=== PATIENT | male | born 1970 | race Hispanic/Latino ===

== ENCOUNTER 2021-12-29 13:20 | Inpatient (IN) | payer OTHER, SELFPAY ==
[2021-12-29] MEDS ORDERED: Rocuronium Bromide 10 MG/ML (10ML VIAL) ONE (13:36)
[2021-12-29] MEDS ORDERED: Magnesium 5 GM/10 ML Abboject SYRINGE ONE (13:36)
[2021-12-29 13:52] LABS: Actual Bicarbonate (HCO3a) 16.4 mEq/L (22-28); Analyzer IN Cardio ER; Base Excess (BEa) -9.7 mEq/L (-2.0 to +3.0); CO2 Tension 36.7 mmHg (35.0-45.0); Calcium, Ionized (arterial) 1.18 mmol/L (1.12-1.30); Hemoglobin (Hb) 16.5 g/dL (14.0-18.0); O2 Tension (PaO2), arterial 179.1 mmHg (80.0-100.0); Potassium - ABG Lab 3.38 mmol/L (3.70-5.30); pH, Arterial 7.27 (7.35-7.45)
[2021-12-29 13:52] LABS: #Basophils 0.1 thou/uL (0.0-0.2); #Eosinphils 0.1 thou/uL (0.0-0.7); #Lymphocytes 5.7 thou/uL (1.20-3.40); #Monocytes 0.9 thou/uL (0.11-0.59); #Neutrophils 7.6 thou/uL (1.40-6.50); %Basophils 0.6 % (0.0-1.0); %Lymphocytes 39.4 % (21.0-51.0); Hemoglobin 17.1 g/dL (14.0-18.0); Mean Corpuscular HGB CONC 33.2 g/dL (32.0-36.0); Mean Corpuscular Hemoglobin 30.1 pg (27.0-31.0); Mean Corpuscular Volume 90.8 fL (78.0-98.0); Mean Platelet Volume 7.5 fL (7.4-10.4); Platelet Count 312 thou/uL (130-400); RBC Distribution Width 11.6 % (11.5-14.5); Red Blood Cell (RBC) Count 5.66 mill/uL (4.70-6.10); White Blood Cell (WBC) Count 14.4 thou/uL (4.8-10.8)
[2021-12-29] MEDS ORDERED: Propofol 1,000 MG/100 ML VIAL IV ONE ×2 (13:52→20:36)
[2021-12-29 13:59] LABS: ALV-art Gradient 488.025 mmHg (0-20); Puncture Site LBA
[2021-12-29] MEDS ORDERED: Fentanyl CADD 100 ML IV SCH ×2 (14:30→20:30)
[2021-12-29 14:54] LABS: ALT (SGPT) 133 U/L (8-55); AST (SGOT) 126 U/L (5-34); Albumin 4.4 g/dL (3.5-5.0); Alkaline Phosphatase 58 U/L (40-110); Anion Gap 22 mmol/L (10-20); BUN (Urea Nitrogen) 13 mg/dL (8.4-25.7); Bilirubin, Total 1.5 mg/dL (0.2-1.2); Calc. Creatinine Clearance 0 mL/min (70-130); Calcium 9.3 mg/dL (7.8-10.44); Carbon Dioxide 15 mmol/L (22-29); Chloride 107 mmol/L (98-107); Estimated GFR 77; Globulin 3.3 g/dL (2.4-3.5); Glucose 197 mg/dL (70-105); Potassium 4.5 mmol/L (3.5-5.1); Protein, Total 7.7 g/dL (6.0-8.3); Sodium 139 mmol/L (136-145)
[2021-12-29 15:06] LABS: CKMB 1.2 ng/mL (0-6.6)
[2021-12-29] MEDS ORDERED: Nitroglycerin 0.4 MG TAB (25 Tab Bottle) SL PRN ×2 (16:13→17:10)
[2021-12-29] MEDS ORDERED: Senokot S 8.6-50 MG TAB PO PRN (16:17)
[2021-12-29] MEDS ORDERED: Guaifenesin DM 100-10/5 ML UDCUP PO PRN (16:17)
[2021-12-29] MEDS ORDERED: Acetaminophen 650 MG Suppository PR PRN (16:17)
[2021-12-29] MEDS ORDERED: Aspirin 300 MG Suppository PR SCH (16:30)
[2021-12-29] MEDS ORDERED: HumaLOG 300 UNITS/3 ML VIAL SC PRN (16:37)
[2021-12-29] MEDS ORDERED: Dextrose 50% Abboject 50 ML SYRINGE SLOW IVP PRN (16:37)
[2021-12-29] MEDS ORDERED: Dextrose 5% in Water 1,000 ML IV PRN (16:37)
[2021-12-29] MEDS ORDERED: Sodium Chloride 0.9% 1,000 ML IV SCH (16:45)
[2021-12-29 16:59] LABS: Magnesium 2.4 mg/dL (1.6-2.6)
[2021-12-29 17:08] LABS: Troponin I 1.085 ng/mL (< 0.028)
[2021-12-29] MEDS ORDERED: Heparin 25,000 units/D5W 500 ML IVPB SCH (17:15)
[2021-12-29 17:36] LABS: Hemoglobin 15.4 g/dL (14.0-18.0); Platelet Count 281 thou/uL (130-400)
[2021-12-29] MEDS: Heparin 10,000 UNITS/ 10 ML VIAL SLOW IVP SCH ×2 (18:12→23:44)
[2021-12-29 19:55] LABS: Bilirubin Negative (Negative); Blood, Urine Moderate (Negative); Glucose, Urine (Dipstick) Negative (Negative); Ketone, Urine 15 mg/dL (Negative); Leukocyte Negative (Negative); Nitrite Negative (Negative); Protein, Urine (Dipstick) 30 mg/dL (Neg-Trace); Urobilinogen 0.2 mg/dL (Less than 2); pH, Urine 5.5 (5.0-9.0)
[2021-12-29 20:06] LABS: Amphetamine Not Detected (NotDetected); Barbiturates Screen Not Detected (NotDetected); Benzodiazepine Screen Not Detected (NotDetected); Cocaine Metabolite Screen Not Detected (NotDetected); Methadone Not Detected (NotDetected); Methamphetamine Not Detected (NotDetected); Opiate Screen Detected (NotDetected); Oxycodone Screen Not Detected (NotDetected); Phencyclidine (PCP) Not Detected (NotDetected); THC/Cannabinoid Screen Not Detected (NotDetected); Tricyclic Screen Not Detected (NotDetected)
[2021-12-29 20:08] LABS: Troponin I 3.615 ng/mL (< 0.028)
[2021-12-29 20:24] LABS: Clarity Extra Turbid (Clear); Specific Gravity, Urine 1.034 (1.002-1.036)
[2021-12-29 20:25] LABS: Bacteria/HPF 4+ HPF (None Seen); Urine Culture Reflex No No; WBC/HPF Greater than 50 HPF (0-3)
[2021-12-29] MEDS ORDERED: Sodium Bicarbonate 150 MEQ in Dextrose 5% in Water 1,000 ML IV SCH ×2 (20:28→21:00)
[2021-12-29] MEDS ORDERED: Midazolam HCl 2 mg/2 ml Vial SLOW IVP PRN (20:29)
[2021-12-29] MEDS ORDERED: Morphine 4 MG/ML VIAL SLOW IVP PRN (20:30)
[2021-12-29] MEDS ORDERED: DISCONTINUE PREVIOUS NARCOTIC PAIN MEDICATIONS AND BENZODIAZEPINES FS SCH (20:30)
[2021-12-29] MEDS ORDERED: Fentanyl BOLUS 250 ML IVPB PRN (20:30)
[2021-12-29] MEDS ORDERED: Propofol BOLUS 1,000 MG/100 ML VIAL IV PRN (20:30)
[2021-12-29] MEDS ORDERED: Atorvastatin Calcium 40 MG TAB PO SCH (21:00)
[2021-12-29] MEDS: Propofol 1,000 MG/100 ML VIAL IV PRN (21:10)
[2021-12-29] MEDS: Famotidine/PF 20 mg/2ml Vial SLOW IVP SCH (21:11)
[2021-12-29 22:58] LABS: Prothrombin Time 13.7 sec (12.0-14.7)
[2021-12-29 22:59] LABS: PTT 52.1 sec (22.9-36.1)
[2021-12-29] MEDS ORDERED: Amiodarone 150 MG in Dextrose 5% in Water 100 ML IVPB SCH (23:00)
[2021-12-29] MEDS: Amiodarone 450 MG in Dextrose 5% in Water 250 ML IVPB SCH (23:10)
[2021-12-30] MEDS: Propofol 1,000 MG/100 ML VIAL IV PRN ×4 (01:52→20:21)
[2021-12-30 03:55] LABS: #Eosinphils 0.1 thou/uL (0.0-0.7); #Lymphocytes 1.9 thou/uL (1.20-3.40); #Monocytes 0.7 thou/uL (0.11-0.59); #Neutrophils 6.5 thou/uL (1.40-6.50); %Basophils 0.4 % (0.0-1.0); %Eosinophils 0.8 % (0.0-10.0); %Lymphocytes 20.9 % (21.0-51.0); %Monocytes 7.8 % (0.0-10.0); Hemoglobin 14.9 g/dL (14.0-18.0); Mean Corpuscular HGB CONC 34.6 g/dL (32.0-36.0); Mean Corpuscular Volume 89.6 fL (78.0-98.0); Mean Platelet Volume 6.6 fL (7.4-10.4); Platelet Count 270 thou/uL (130-400); RBC Distribution Width 11.4 % (11.5-14.5); Red Blood Cell (RBC) Count 4.81 mill/uL (4.70-6.10); White Blood Cell (WBC) Count 9.3 thou/uL (4.8-10.8)
[2021-12-30 04:14] LABS: Anion Gap 11 mmol/L (10-20); BUN (Urea Nitrogen) 10 mg/dL (8.4-25.7); Calc. Creatinine Clearance 111 mL/min (70-130); Calcium 8.5 mg/dL (7.8-10.44); Carbon Dioxide 28 mmol/L (22-29); Cardiac Risk 6.2 (Less than 4.5); Chloride 101 mmol/L (98-107); Cholesterol 168 mg/dl (< 200 Desired); Estimated GFR 103; Glucose 142 mg/dL (70-105); HDL Cholesterol 27 mg/dL (>60 Neg Risk); LDL Cholesterol, Calculated 79 mg/dL; Potassium 3.7 mmol/L (3.5-5.1); Sodium 136 mmol/L (136-145); Triglycerides 310 mg/dL (Less than 150)
[2021-12-30] MEDS ORDERED: Sodium Chloride 0.9% 1,000 ML IV SCH (08:15)
[2021-12-30] MEDS ORDERED: Communication Order-Pharmacy FS SCH (08:15)
[2021-12-30] MEDS ORDERED: Heparin 10,000 UNITS/ 10 ML VIAL ONE (08:17)
[2021-12-30] MEDS ORDERED: Lidocaine 1% (PF) 30 ML VIAL ONE (08:17)
[2021-12-30] MEDS: Famotidine/PF 20 mg/2ml Vial SLOW IVP SCH ×2 (08:17→20:21)
[2021-12-30 09:00] LABS: Hemoglobin A1c 5.9 % (4.0-6.0)
[2021-12-30] MEDS ORDERED: FLU VACC QS2022-23(6MOS UP)/PF 60 MCG/0.5 ML SYRINGE IM ONE (09:00)
[2021-12-30] MEDS ORDERED: Sodium Bicarbonate 150 MEQ in Dextrose 5% in Water 1,000 ML IV SCH (09:00)
[2021-12-30] MEDS ORDERED: Aspirin 300 MG Suppository PR SCH (09:00)
[2021-12-30] MEDS ORDERED: Enoxaparin Sodium 40 MG/0.4 ML SYRINGE SC SCH (09:00)
[2021-12-30] MEDS ORDERED: Midazolam HCl 2 mg/2 ml Vial ONE (09:06)
[2021-12-30] MEDS ORDERED: Sodium Chloride 0.9% 200 ML IV PRN (09:56)
[2021-12-30] MEDS ORDERED: Acetaminophen/Codeine 30-300mg Tablet PO PRN ×2 (09:56)
[2021-12-30] MEDS ORDERED: Nitroglycerin 0.4 MG TAB (25 Tab Bottle) SL PRN (09:56)
[2021-12-30] MEDS ORDERED: Iopamidol 370 76% 50 ML VIAL FS ONE (10:05)
[2021-12-30] MEDS ORDERED: Iopamidol 370 76% 100 ML VIAL ONE (10:05)
[2021-12-30] MEDS: Sodium Chloride 0.9% 1,000 ML IV SCH ×2 (10:40→15:07)
[2021-12-30] MEDS ORDERED: Communication Order-Pharmacy FS PRN (11:07)
[2021-12-30] MEDS: Aggrastat 12.5 MG/250 ML 250 ML IVPB SCH (11:40)
[2021-12-30] MEDS ORDERED: Atorvastatin Calcium 20 MG TAB PO SCH (21:00)
[2021-12-31 00:08] LABS: SARS-CoV-2 NAA Rapid Test Not Detected (NotDetected)
[2021-12-31] MEDS: Aggrastat 12.5 MG/250 ML 250 ML IVPB SCH (00:43)
[2021-12-31] MEDS: Amiodarone 450 MG in Dextrose 5% in Water 250 ML IVPB SCH (00:43)
[2021-12-31] MEDS: Sodium Chloride 0.9% 1,000 ML IV SCH (01:18)
[2021-12-31] MEDS: Propofol 1,000 MG/100 ML VIAL IV PRN (02:30)
[2021-12-31 04:34] LABS: #Eosinphils 0.1 thou/uL (0.0-0.7); #Lymphocytes 1.3 thou/uL (1.20-3.40); #Monocytes 0.9 thou/uL (0.11-0.59); #Neutrophils 6.1 thou/uL (1.40-6.50); %Basophils 0.3 % (0.0-1.0); %Eosinophils 1.7 % (0.0-10.0); %Lymphocytes 15.5 % (21.0-51.0); %Monocytes 10.4 % (0.0-10.0); %Neutrophils 72.1 % (42.0-75.0); Hemoglobin 13.3 g/dL (14.0-18.0); Mean Corpuscular HGB CONC 34.5 g/dL (32.0-36.0); Mean Corpuscular Hemoglobin 31.1 pg (27.0-31.0); Mean Corpuscular Volume 90.1 fL (78.0-98.0); Mean Platelet Volume 6.8 fL (7.4-10.4); Platelet Count 220 thou/uL (130-400); RBC Distribution Width 11.3 % (11.5-14.5); Red Blood Cell (RBC) Count 4.28 mill/uL (4.70-6.10); White Blood Cell (WBC) Count 8.5 thou/uL (4.8-10.8)
[2021-12-31 06:21] LABS: ALT (SGPT) 102 U/L (8-55); AST (SGOT) 93 U/L (5-34); Albumin 3.1 g/dL (3.5-5.0); Alkaline Phosphatase 44 U/L (40-110); Anion Gap 13 mmol/L (10-20); BUN (Urea Nitrogen) 8 mg/dL (8.4-25.7); Bilirubin, Total 2.2 mg/dL (0.2-1.2); Calc. Creatinine Clearance 103 mL/min (70-130); Calcium 7.9 mg/dL (7.8-10.44); Carbon Dioxide 22 mmol/L (22-29); Chloride 108 mmol/L (98-107); Estimated GFR 96; Globulin 2.2 g/dL (2.4-3.5); Glucose 121 mg/dL (70-105); Potassium 3.5 mmol/L (3.5-5.1); Protein, Total 5.3 g/dL (6.0-8.3); Sodium 139 mmol/L (136-145)
[2021-12-31] MEDS ORDERED: PHENYLEPHRINE-NS 100 MCG/ML 10 ML SYRINGE ONE (06:39)
[2021-12-31] MEDS ORDERED: Midazolam HCl 5 mg/5 ml Vial ONE (06:42)
[2021-12-31] MEDS ORDERED: Magnesium 5 GM/10 ML Abboject SYRINGE ONE (06:43)
[2021-12-31] MEDS ORDERED: fentaNYL Citrate/PF 100 MCG/2 ML SYRINGE ONE (06:45)
[2021-12-31 07:00] LABS: Actual Bicarbonate (HCO3a) 23.2 mEq/L (22-28); Base Excess (BEa) 0.2 mEq/L (-2.0 to +3.0); CO2 Tension 32.6 mmHg (35.0-45.0); Calcium, Ionized (arterial) 1.08 mmol/L (1.12-1.30); Carboxyhemoglobin (COHb) 0.7 gm% (0.0-3.0); Hemoglobin (Hb) 13.5 g/dL (14.0-18.0); O2 Tension (PaO2), arterial 80.6 mmHg (80.0-100.0); Potassium - ABG Lab 3.51 mmol/L (3.70-5.30); pH, Arterial 7.47 (7.35-7.45)
[2021-12-31 07:03] LABS: Puncture Site Arterial Line
[2021-12-31] MEDS ORDERED: Aminocaproic Acid 5 GM/20 ML VIAL ONE (07:25)
[2021-12-31] MEDS ORDERED: Albumin 25% 25 GM/100 ML BOT ONE (07:25)
[2021-12-31] MEDS ORDERED: PROPOFOL 200 MG/20 ML VIAL ONE (07:25)
[2021-12-31] MEDS ORDERED: Sodium Bicarb 50 MEQ/50 ML Abboject 8.4% SYRINGE ONE (07:25)
[2021-12-31] MEDS ORDERED: Rocuronium Bromide 10 MG/ML (10ML VIAL) ONE (07:25)
[2021-12-31] MEDS ORDERED: Lidocaine 2% PF 100 mg/5 ml Syringe ONE (07:25)
[2021-12-31] MEDS ORDERED: Heparin 5,000 UNITS/ML VIAL ONE (07:25)
[2021-12-31] MEDS ORDERED: Calcium Chloride 1 GM/10 ML Abboject SYRINGE ONE (07:25)
[2021-12-31] MEDS ORDERED: Mannitol 12.5 GM/50 ML ONE (07:25)
[2021-12-31] MEDS ORDERED: Magnesium Sulfate 1 GM/2 ML VIAL ONE (07:25)
[2021-12-31] MEDS ORDERED: Nitroglycerin 50 MG/250 ML BOT ONE (07:25)
[2021-12-31] MEDS ORDERED: Cardioplegic Soln 1,000 ML BAG ONE (07:25)
[2021-12-31] MEDS ORDERED: Thrombin 5000 UNITS/5 ML VIAL ONE (07:25)
[2021-12-31] MEDS ORDERED: Heparin 30,000 units/30 ml VIAL ONE (07:25)
[2021-12-31] MEDS ORDERED: Potassium Chloride 60 MEQ/30 ML VIAL ONE (07:25)
[2021-12-31] MEDS ORDERED: Esmolol 100 MG/10 ML VIAL ONE (07:25)
[2021-12-31] MEDS ORDERED: Protamine Sulfate 250 MG/25 ML VIAL ONE (07:25)
[2021-12-31] MEDS ORDERED: Papaverine 60 MG/2 ML VIAL ONE (07:25)
[2021-12-31] MEDS ORDERED: Heparin 10,000 UNITS/1 ML VIAL 30,000 UNITS in Sodium Chloride 0.9% 1,000 ML FS SCH (08:00)
[2021-12-31 12:10] LABS: Base Excess (BEa) -5.9 mEq/L (-2.0 to +3.0); CO2 Tension 35.5 mmHg (35.0-45.0); Calcium, Ionized (arterial) 1.09 mmol/L (1.12-1.30); Carboxyhemoglobin (COHb) 0.8 gm% (0.0-3.0); Hemoglobin (Hb) 14.3 g/dL (14.0-18.0); O2 Tension (PaO2), arterial 63.6 mmHg (80.0-100.0); pH, Arterial 7.35 (7.35-7.45)
[2021-12-31 12:11] LABS: ALV-art Gradient 177.225 mmHg (0-20); Puncture Site Arterial Line
[2021-12-31 12:16] LABS: Platelet Count 184 thou/uL (130-400)
[2021-12-31] MEDS ORDERED: niCARdipine 25 MG in Sodium Chloride 0.9% 250 ML 250 ML IVPB PRN (12:31)
[2021-12-31] MEDS ORDERED: Magnesium 2 GM/50 ML(in water) 2 GM in Premix Bag 1 BAG IVPB SCH (12:31)
[2021-12-31] MEDS ORDERED: DOPamine 400 MG/D5W 250 ML 250 ML IVPB PRN (12:31)
[2021-12-31] MEDS ORDERED: Mag-Al 1200 mg/1200 mg/30 ML UDCUP PO PRN (12:31)
[2021-12-31] MEDS ORDERED: hydrALAZINE 20 MG/ML VIAL SLOW IVP PRN (12:31)
[2021-12-31] MEDS ORDERED: Bisacodyl 10 MG SUPP PR PRN (12:31)
[2021-12-31] MEDS ORDERED: Fentanyl 100 MCG/2 ML VIAL SLOW IVP PRN (12:31)
[2021-12-31] MEDS ORDERED: Promethazine HCl 25 MG/ML VIAL IM PRN (12:31)
[2021-12-31] MEDS ORDERED: Hetastarch 6% 500 ML 500 ML IVPB PRN (12:31)
[2021-12-31] MEDS ORDERED: Morphine 2 MG/ML VIAL SLOW IVP PRN (12:31)
[2021-12-31] MEDS ORDERED: Nitroglycerin 50 MG/250 ML BOT 250 ML IVPB PRN (12:31)
[2021-12-31] MEDS ORDERED: Ondansetron PF 4 MG/2 ML Vial IVP PRN (12:31)
[2021-12-31] MEDS ORDERED: Bisacodyl 5 MG TAB PO PRN (12:31)
[2021-12-31] MEDS ORDERED: NOREPINEPHRINE 8 MG/250 ML-D5W 250 ML IVPB PRN (12:31)
[2021-12-31] MEDS ORDERED: Post-Op Insulin Drip Protocol IVPB ONE (12:31)
[2021-12-31] MEDS ORDERED: Morphine 4 MG/ML VIAL ONE (12:34)
[2021-12-31] MEDS ORDERED: Dextrose 5% in Water 1,000 ML IV PRN (12:45)
[2021-12-31] MEDS ORDERED: HUMULIN R 100 UNITS in Sodium Chloride 0.9% 100 ML IVPB SCH (12:45)
[2021-12-31] MEDS ORDERED: Dextrose 50% Abboject 50 ML SYRINGE SLOW IVP PRN (12:45)
[2021-12-31] MEDS: Ketorolac Tromethamine 30 MG/ML VIAL IVP SCH ×2 (12:46→18:24)
[2021-12-31 12:54] LABS: #Eosinphils 0.1 thou/uL (0.0-0.7); #Lymphocytes 1.5 thou/uL (1.20-3.40); #Monocytes 0.8 thou/uL (0.11-0.59); #Neutrophils 13.4 thou/uL (1.40-6.50); %Basophils 0.2 % (0.0-1.0); %Eosinophils 0.6 % (0.0-10.0); %Lymphocytes 9.5 % (21.0-51.0); %Monocytes 5.3 % (0.0-10.0); %Neutrophils 84.4 % (42.0-75.0); Hemoglobin 13.9 g/dL (14.0-18.0); Mean Corpuscular HGB CONC 33.5 g/dL (32.0-36.0); Mean Corpuscular Hemoglobin 30.4 pg (27.0-31.0); Mean Corpuscular Volume 90.8 fL (78.0-98.0); Mean Platelet Volume 6.8 fL (7.4-10.4); Platelet Count 184 thou/uL (130-400); RBC Distribution Width 11.5 % (11.5-14.5); Red Blood Cell (RBC) Count 4.58 mill/uL (4.70-6.10); White Blood Cell (WBC) Count 15.9 thou/uL (4.8-10.8)
[2021-12-31 13:09] LABS: INR-International Normal Ratio 1.5; Prothrombin Time 18.4 sec (12.0-14.7)
[2021-12-31 13:10] LABS: PTT 37.5 sec (22.9-36.1)
[2021-12-31] MEDS: Insulin Regular 300 UNITS/3 ML VIAL SC PRN ×3 (13:13→20:28)
[2021-12-31] MEDS: Lactated Ringer's 1,000 ML IV SCH (13:15)
[2021-12-31 13:27] LABS: Anion Gap 14 mmol/L (10-20); BUN (Urea Nitrogen) 8 mg/dL (8.4-25.7); Calc. Creatinine Clearance 140 mL/min (70-130); Calcium 7.5 mg/dL (7.8-10.44); Carbon Dioxide 18 mmol/L (22-29); Chloride 110 mmol/L (98-107); Estimated GFR 110; Glucose 176 mg/dL (70-105); Potassium 3.9 mmol/L (3.5-5.1); Sodium 138 mmol/L (136-145)
[2021-12-31] MEDS: Potassium Chloride 20 MEQ/100 ML PREMIX BAG IVPB PRN (13:42)
[2021-12-31 14:32] LABS: Actual Bicarbonate (HCO3a) 17.3 mEq/L (22-28); Base Excess (BEa) -7.5 mEq/L (-2.0 to +3.0); CO2 Tension 33.2 mmHg (35.0-45.0); Calcium, Ionized (arterial) 1.08 mmol/L (1.12-1.30); Hemoglobin (Hb) 14.4 g/dL (14.0-18.0); Potassium - ABG Lab 4.46 mmol/L (3.70-5.30); pH, Arterial 7.33 (7.35-7.45)
[2021-12-31 14:33] LABS: Puncture Site Arterial Line
[2021-12-31] MEDS: CEFAZOLIN 2 GM in Sodium Chloride 0.9% 100 ML IVPB SCH (15:34)
[2021-12-31] MEDS: HYDROcodone/Acetaminophen 5/325 mg Tablet PO PRN (15:54)
[2021-12-31] MEDS ORDERED: Amiodarone 450 MG, Admixture Fee 1 EACH in Dextrose 5% in Water 250 ML IVPB SCH (16:15)
[2021-12-31 18:01] LABS: Hemoglobin 13.6 g/dL (14.0-18.0)
[2021-12-31 18:16] LABS: Potassium 4.2 mmol/L (3.5-5.1)
[2021-12-31] MEDS: Atorvastatin Calcium 10 MG TAB PO SCH (20:28)
[2021-12-31] MEDS: Famotidine/PF 20 mg/2ml Vial SLOW IVP SCH (20:28)
[2021-12-31] MEDS: Fentanyl 100 MCG/2 ML VIAL SLOW IVP PRN (20:29)
[2022-01-01] MEDS: CEFAZOLIN 2 GM in Sodium Chloride 0.9% 100 ML IVPB SCH ×2 (00:12→06:05)
[2022-01-01] MEDS: Ketorolac Tromethamine 30 MG/ML VIAL IVP SCH ×4 (00:13→18:02)
[2022-01-01] MEDS: Insulin Regular 300 UNITS/3 ML VIAL SC PRN ×5 (00:16→18:00)
[2022-01-01] MEDS: Lactated Ringer's 1,000 ML IV SCH ×2 (01:42→18:05)
[2022-01-01 04:41] LABS: #Lymphocytes 1.1 thou/uL (1.20-3.40); #Monocytes 1.2 thou/uL (0.11-0.59); #Neutrophils 7.8 thou/uL (1.40-6.50); %Eosinophils 0.2 % (0.0-10.0); %Lymphocytes 10.8 % (21.0-51.0); %Monocytes 11.4 % (0.0-10.0); %Neutrophils 77.6 % (42.0-75.0); Hemoglobin 11.8 g/dL (14.0-18.0); Mean Corpuscular HGB CONC 34.2 g/dL (32.0-36.0); Mean Corpuscular Hemoglobin 31.2 pg (27.0-31.0); Mean Platelet Volume 6.7 fL (7.4-10.4); Platelet Count 174 thou/uL (130-400); RBC Distribution Width 11.6 % (11.5-14.5); Red Blood Cell (RBC) Count 3.78 mill/uL (4.70-6.10); White Blood Cell (WBC) Count 10.1 thou/uL (4.8-10.8)
[2022-01-01] MEDS: Fentanyl 100 MCG/2 ML VIAL SLOW IVP PRN (04:44)
[2022-01-01 05:00] LABS: Anion Gap 12 mmol/L (10-20); BUN (Urea Nitrogen) 7 mg/dL (8.4-25.7); Calc. Creatinine Clearance 142 mL/min (70-130); Calcium 7.7 mg/dL (7.8-10.44); Carbon Dioxide 23 mmol/L (22-29); Chloride 108 mmol/L (98-107); Estimated GFR 110; Glucose 146 mg/dL (70-105); Potassium 4.1 mmol/L (3.5-5.1); Sodium 139 mmol/L (136-145)
[2022-01-01] MEDS: HYDROcodone/Acetaminophen 5/325 mg Tablet PO PRN ×3 (06:06→21:23)
[2022-01-01] MEDS ORDERED: Carvedilol 3.125 MG TAB PO SCH (08:00)
[2022-01-01] MEDS ORDERED: Aspirin 325 MG TAB PO SCH (09:00)
[2022-01-01] MEDS: Clopidogrel Bisulfate 75 MG TAB PO SCH (09:16)
[2022-01-01] MEDS: Polyethylene Glycol 3350 17 GM Packet PO SCH (09:16)
[2022-01-01] MEDS: Aspirin Chewable 81 MG TAB PO SCH (09:16)
[2022-01-01] MEDS: Metoprolol Tartrate 25 MG TAB PO SCH ×3 (09:16→21:23)
[2022-01-01] MEDS: Famotidine/PF 20 mg/2ml Vial SLOW IVP SCH ×2 (09:16→21:22)
[2022-01-01] MEDS: Magnesium 2 GM/50 ML(in water) 2 GM in Premix Bag 1 BAG IVPB SCH (09:16)
[2022-01-01] MEDS ORDERED: Insulin Glargine 30 UNITS/0.3 ML VIAL SC PRN (12:34)
[2022-01-01] MEDS: Atorvastatin Calcium 10 MG TAB PO SCH (21:22)
[2022-01-02] MEDS: Ketorolac Tromethamine 30 MG/ML VIAL IVP SCH ×5 (00:57→23:36)
[2022-01-02 04:26] LABS: #Eosinphils 0.1 thou/uL (0.0-0.7); #Lymphocytes 1.3 thou/uL (1.20-3.40); #Monocytes 0.9 thou/uL (0.11-0.59); #Neutrophils 5.4 thou/uL (1.40-6.50); %Basophils 0.3 % (0.0-1.0); %Eosinophils 1.8 % (0.0-10.0); %Lymphocytes 16.2 % (21.0-51.0); %Monocytes 11.4 % (0.0-10.0); %Neutrophils 70.3 % (42.0-75.0); Hemoglobin 9.9 g/dL (14.0-18.0); Mean Corpuscular HGB CONC 34.5 g/dL (32.0-36.0); Mean Corpuscular Hemoglobin 31.1 pg (27.0-31.0); Mean Corpuscular Volume 90.1 fL (78.0-98.0); Mean Platelet Volume 6.9 fL (7.4-10.4); Platelet Count 198 thou/uL (130-400); RBC Distribution Width 11.3 % (11.5-14.5); Red Blood Cell (RBC) Count 3.19 mill/uL (4.70-6.10); White Blood Cell (WBC) Count 7.7 thou/uL (4.8-10.8)
[2022-01-02 05:21] LABS: Anion Gap 10 mmol/L (10-20); BUN (Urea Nitrogen) 6 mg/dL (8.4-25.7); Calc. Creatinine Clearance 144 mL/min (70-130); Calcium 7.7 mg/dL (7.8-10.44); Carbon Dioxide 25 mmol/L (22-29); Chloride 106 mmol/L (98-107); Estimated GFR 111; Glucose 133 mg/dL (70-105); Potassium 3.5 mmol/L (3.5-5.1); Sodium 137 mmol/L (136-145)
[2022-01-02] MEDS: Potassium Chloride 20 MEQ/100 ML PREMIX BAG IVPB PRN (06:41)
[2022-01-02] MEDS ORDERED: Lactated Ringer's 1,000 ML IV SCH (06:45)
[2022-01-02] MEDS: Aspirin Chewable 81 MG TAB PO SCH (07:53)
[2022-01-02] MEDS: Clopidogrel Bisulfate 75 MG TAB PO SCH (07:53)
[2022-01-02] MEDS: Magnesium 2 GM/50 ML(in water) 2 GM in Premix Bag 1 BAG IVPB SCH (07:54)
[2022-01-02] MEDS: Polyethylene Glycol 3350 17 GM Packet PO SCH (07:54)
[2022-01-02] MEDS: Metoprolol Tartrate 25 MG TAB PO SCH (08:41)
[2022-01-02] MEDS: HYDROcodone/Acetaminophen 5/325 mg Tablet PO PRN ×2 (08:50→21:14)
[2022-01-02] MEDS ORDERED: Nitroglycerin 0.4 MG TAB (25 Tab Bottle) SL PRN (09:30)
[2022-01-02] MEDS ORDERED: Dextrose 5% in Water 1,000 ML IV PRN (10:00)
[2022-01-02] MEDS ORDERED: Dextrose 50% Abboject 50 ML SYRINGE SLOW IVP PRN (10:00)
[2022-01-02] MEDS: Insulin Regular 300 UNITS/3 ML VIAL SC PRN ×2 (11:13→21:09)
[2022-01-02] MEDS: Lisinopril 2.5 MG TAB PO SCH (12:41)
[2022-01-02] MEDS: Famotidine/PF 20 mg/2ml Vial SLOW IVP SCH (18:46)
[2022-01-02] MEDS ORDERED: Metoprolol Tartrate 25 MG TAB PO SCH (21:00)
[2022-01-02] MEDS: Famotidine 20 MG TAB PO SCH (21:09)
[2022-01-02] MEDS: Atorvastatin Calcium 20 MG TAB PO SCH (21:09)
[2022-01-02] MEDS: Guaifenesin DM 100-10/5 ML UDCUP PO PRN (21:14)
[2022-01-02] MEDS: Atorvastatin Calcium 10 MG TAB PO SCH (22:51)
[2022-01-03] MEDS: HYDROcodone/Acetaminophen 5/325 mg Tablet PO PRN ×2 (04:02→19:17)
[2022-01-03] MEDS: Ketorolac Tromethamine 30 MG/ML VIAL IVP SCH ×2 (05:14→11:42)
[2022-01-03] MEDS: Insulin Regular 300 UNITS/3 ML VIAL SC PRN ×2 (05:14→21:24)
[2022-01-03] MEDS: Guaifenesin DM 100-10/5 ML UDCUP PO PRN (05:19)
[2022-01-03] MEDS: Potassium Chloride 10 MEQ TAB PO SCH (09:25)
[2022-01-03] MEDS: Furosemide 40 MG TAB PO SCH (09:26)
[2022-01-03] MEDS: Metoprolol Tartrate 25 MG TAB PO SCH ×2 (09:26→20:18)
[2022-01-03] MEDS: Polyethylene Glycol 3350 17 GM Packet PO SCH (09:27)
[2022-01-03] MEDS: Clopidogrel Bisulfate 75 MG TAB PO SCH (09:27)
[2022-01-03] MEDS: Famotidine 20 MG TAB PO SCH ×2 (09:27→20:18)
[2022-01-03] MEDS: Aspirin Chewable 81 MG TAB PO SCH (09:27)
[2022-01-03] MEDS: Lisinopril 2.5 MG TAB PO SCH (09:27)
[2022-01-03] MEDS: cefTRIAXone\\ROCEPHIN 1 GM in Sodium Chloride 0.9% 100 ML IVPB SCH (14:51)
[2022-01-03] MEDS: Atorvastatin Calcium 20 MG TAB PO SCH (20:18)
[2022-01-03] MEDS: Atorvastatin Calcium 10 MG TAB PO SCH (21:24)
[2022-01-04] MEDS: HYDROcodone/Acetaminophen 5/325 mg Tablet PO PRN ×4 (02:10→21:58)
[2022-01-04 05:03] LABS: #Eosinphils 0.2 thou/uL (0.0-0.7); #Lymphocytes 1.6 thou/uL (1.20-3.40); #Monocytes 0.9 thou/uL (0.11-0.59); #Neutrophils 5.2 thou/uL (1.40-6.50); %Basophils 0.5 % (0.0-1.0); %Eosinophils 2.9 % (0.0-10.0); %Lymphocytes 20.6 % (21.0-51.0); %Monocytes 10.7 % (0.0-10.0); %Neutrophils 65.3 % (42.0-75.0); Hemoglobin 10.6 g/dL (14.0-18.0); Mean Corpuscular HGB CONC 34.7 g/dL (32.0-36.0); Mean Corpuscular Hemoglobin 31.1 pg (27.0-31.0); Mean Corpuscular Volume 89.6 fL (78.0-98.0); Mean Platelet Volume 6.7 fL (7.4-10.4); Platelet Count 297 thou/uL (130-400); RBC Distribution Width 11.4 % (11.5-14.5); Red Blood Cell (RBC) Count 3.41 mill/uL (4.70-6.10)
[2022-01-04 05:28] LABS: Anion Gap 12 mmol/L (10-20); BUN (Urea Nitrogen) 9 mg/dL (8.4-25.7); Calc. Creatinine Clearance 118 mL/min (70-130); Calcium 8.4 mg/dL (7.8-10.44); Carbon Dioxide 22 mmol/L (22-29); Chloride 107 mmol/L (98-107); Estimated GFR 105; Glucose 148 mg/dL (70-105); Potassium 3.3 mmol/L (3.5-5.1); Sodium 138 mmol/L (136-145)
[2022-01-04] MEDS: Insulin Regular 300 UNITS/3 ML VIAL SC PRN ×2 (05:44→20:54)
[2022-01-04] MEDS: Furosemide 40 MG TAB PO SCH (08:46)
[2022-01-04] MEDS: Aspirin Chewable 81 MG TAB PO SCH (08:46)
[2022-01-04] MEDS: Potassium Chloride 10 MEQ TAB PO SCH (08:46)
[2022-01-04] MEDS: Lisinopril 2.5 MG TAB PO SCH (08:46)
[2022-01-04] MEDS: Clopidogrel Bisulfate 75 MG TAB PO SCH (08:46)
[2022-01-04] MEDS: Famotidine 20 MG TAB PO SCH ×2 (08:46→20:47)
[2022-01-04] MEDS: Polyethylene Glycol 3350 17 GM Packet PO SCH (08:47)
[2022-01-04] MEDS: Metoprolol Tartrate 25 MG TAB PO SCH (08:47)
[2022-01-04] MEDS ORDERED: Lisinopril 2.5 MG TAB PO SCH (09:15)
[2022-01-04] MEDS ORDERED: Metoprolol Tartrate 25 MG TAB PO SCH ×3 (09:25→21:00)
[2022-01-04] MEDS: Acetaminophen 325 MG TAB PO PRN (12:24)
[2022-01-04] MEDS: cefTRIAXone\\ROCEPHIN 1 GM in Sodium Chloride 0.9% 100 ML IVPB SCH (14:48)
[2022-01-04] MEDS ORDERED: Lactated Ringer's 1,000 ML IV SCH (17:15)
[2022-01-04] MEDS: Atorvastatin Calcium 20 MG TAB PO SCH (20:46)
[2022-01-04] MEDS: Atorvastatin Calcium 10 MG TAB PO SCH (20:47)
[2022-01-05 04:48] LABS: #Eosinphils 0.3 thou/uL (0.0-0.7); #Lymphocytes 1.8 thou/uL (1.20-3.40); #Neutrophils 5.9 thou/uL (1.40-6.50); %Basophils 0.5 % (0.0-1.0); %Eosinophils 3.5 % (0.0-10.0); %Lymphocytes 19.6 % (21.0-51.0); %Monocytes 10.7 % (0.0-10.0); %Neutrophils 65.7 % (42.0-75.0); Hemoglobin 11.6 g/dL (14.0-18.0); Mean Corpuscular HGB CONC 34.5 g/dL (32.0-36.0); Mean Corpuscular Hemoglobin 31.3 pg (27.0-31.0); Mean Corpuscular Volume 90.7 fL (78.0-98.0); Mean Platelet Volume 6.4 fL (7.4-10.4); Platelet Count 367 thou/uL (130-400); RBC Distribution Width 11.7 % (11.5-14.5)
[2022-01-05 05:08] LABS: Anion Gap 13 mmol/L (10-20); BUN (Urea Nitrogen) 11 mg/dL (8.4-25.7); Calc. Creatinine Clearance 122 mL/min (70-130); Calcium 8.6 mg/dL (7.8-10.44); Carbon Dioxide 22 mmol/L (22-29); Chloride 108 mmol/L (98-107); Estimated GFR 106; Glucose 135 mg/dL (70-105); Potassium 3.7 mmol/L (3.5-5.1); Sodium 139 mmol/L (136-145)
[2022-01-05] MEDS: Insulin Regular 300 UNITS/3 ML VIAL SC PRN ×3 (05:59→22:45)
[2022-01-05] MEDS: HYDROcodone/Acetaminophen 5/325 mg Tablet PO PRN ×3 (06:01→20:35)
[2022-01-05] MEDS ORDERED: Potassium Chloride 20 MEQ TAB PO SCH (08:00)
[2022-01-05] MEDS: Metoprolol Tartrate 50 MG TAB PO SCH ×2 (09:10→20:34)
[2022-01-05] MEDS: Aspirin Chewable 81 MG TAB PO SCH (09:10)
[2022-01-05] MEDS: Clopidogrel Bisulfate 75 MG TAB PO SCH (09:10)
[2022-01-05] MEDS: Lisinopril 5 MG TAB PO SCH (09:10)
[2022-01-05] MEDS: Acetaminophen 325 MG TAB PO PRN ×2 (09:10→16:39)
[2022-01-05] MEDS: Polyethylene Glycol 3350 17 GM Packet PO SCH (09:11)
[2022-01-05] MEDS: Famotidine 20 MG TAB PO SCH ×2 (09:11→20:35)
[2022-01-05] MEDS: cefTRIAXone\\ROCEPHIN 1 GM in Sodium Chloride 0.9% 100 ML IVPB SCH (14:29)
[2022-01-05] MEDS: Atorvastatin Calcium 10 MG TAB PO SCH ×2 (20:34→21:52)
[2022-01-05] MEDS: Atorvastatin Calcium 20 MG TAB PO SCH (20:34)
[2022-01-06] MEDS: HYDROcodone/Acetaminophen 5/325 mg Tablet PO PRN ×2 (02:57→15:35)
[2022-01-06 04:38] LABS: #Basophils 0.1 thou/uL (0.0-0.2); #Eosinphils 0.3 thou/uL (0.0-0.7); #Lymphocytes 1.7 thou/uL (1.20-3.40); #Monocytes 1.2 thou/uL (0.11-0.59); #Neutrophils 7.6 thou/uL (1.40-6.50); %Basophils 0.7 % (0.0-1.0); %Eosinophils 2.7 % (0.0-10.0); %Lymphocytes 15.5 % (21.0-51.0); %Monocytes 11.2 % (0.0-10.0); %Neutrophils 69.8 % (42.0-75.0); Hemoglobin 12.6 g/dL (14.0-18.0); Mean Corpuscular HGB CONC 33.6 g/dL (32.0-36.0); Mean Corpuscular Hemoglobin 30.8 pg (27.0-31.0); Mean Corpuscular Volume 91.8 fl (78.0-98.0); Mean Platelet Volume 6.7 fL (7.4-10.4); Platelet Count 495 thou/uL (130-400); Red Blood Cell (RBC) Count 4.08 mill/uL (4.70-6.10); White Blood Cell (WBC) Count 10.9 thou/uL (4.8-10.8)
[2022-01-06 05:14] LABS: Anion Gap 14 mmol/L (10-20); BUN (Urea Nitrogen) 11 mg/dL (8.4-25.7); Calc. Creatinine Clearance 115 mL/min (70-130); Calcium 8.9 mg/dL (7.8-10.44); Carbon Dioxide 21 mmol/L (22-29); Chloride 107 mmol/L (98-107); Estimated GFR 105; Glucose 143 mg/dL (70-105); Sodium 138 mmol/L (136-145)
[2022-01-06] MEDS: Insulin Regular 300 UNITS/3 ML VIAL SC PRN ×4 (06:19→22:38)
[2022-01-06] MEDS: Acetaminophen 325 MG TAB PO PRN ×2 (06:20→19:27)
[2022-01-06] MEDS: Aspirin Chewable 81 MG TAB PO SCH (08:46)
[2022-01-06] MEDS: Clopidogrel Bisulfate 75 MG TAB PO SCH (08:46)
[2022-01-06] MEDS: Famotidine 20 MG TAB PO SCH ×2 (08:47→21:23)
[2022-01-06] MEDS: Metoprolol Tartrate 50 MG TAB PO SCH ×2 (08:47→21:23)
[2022-01-06] MEDS: Polyethylene Glycol 3350 17 GM Packet PO SCH (08:47)
[2022-01-06] MEDS: Lisinopril 5 MG TAB PO SCH (08:47)
[2022-01-06] MEDS: Benzonatate 100 MG CAP PO PRN (11:56)
[2022-01-06] MEDS: cefTRIAXone\\ROCEPHIN 1 GM in Sodium Chloride 0.9% 100 ML IVPB SCH (14:06)
[2022-01-06] MEDS: Atorvastatin Calcium 20 MG TAB PO SCH (21:23)
[2022-01-06] MEDS: Guaifenesin DM 100-10/5 ML UDCUP PO PRN (22:35)
[2022-01-07] MEDS: HYDROcodone/Acetaminophen 5/325 mg Tablet PO PRN ×3 (00:14→21:00)
[2022-01-07] MEDS: Benzonatate 100 MG CAP PO PRN (00:24)
[2022-01-07] MEDS: Guaifenesin DM 100-10/5 ML UDCUP PO PRN (05:43)
[2022-01-07] MEDS ORDERED: cefTRIAXone\\ROCEPHIN 1 GM in Sodium Chloride 0.9% 100 ML IVPB SCH (07:00)
[2022-01-07] MEDS: Insulin Regular 300 UNITS/3 ML VIAL SC PRN ×4 (07:43→21:02)
[2022-01-07 09:35] LABS: #Eosinphils 0.4 thou/uL (0.0-0.7); #Lymphocytes 3.1 thou/uL (1.20-3.40); #Monocytes 1.2 thou/uL (0.11-0.59); #Neutrophils 9.6 thou/uL (1.40-6.50); %Basophils 0.3 % (0.0-1.0); %Eosinophils 3.1 % (0.0-10.0); %Lymphocytes 21.5 % (21.0-51.0); %Monocytes 8.6 % (0.0-10.0); %Neutrophils 66.5 % (42.0-75.0); Hemoglobin 12.1 g/dL (14.0-18.0); Mean Corpuscular HGB CONC 32.6 g/dL (32.0-36.0); Mean Corpuscular Hemoglobin 30.2 pg (27.0-31.0); Mean Corpuscular Volume 92.6 fl (78.0-98.0); Mean Platelet Volume 6.7 fL (7.4-10.4); Platelet Count 666 thou/uL (130-400); White Blood Cell (WBC) Count 14.4 thou/uL (4.8-10.8)
[2022-01-07] MEDS: Metoprolol Tartrate 50 MG TAB PO SCH ×2 (09:37→20:58)
[2022-01-07] MEDS: Clopidogrel Bisulfate 75 MG TAB PO SCH (09:37)
[2022-01-07] MEDS: Lisinopril 5 MG TAB PO SCH (09:37)
[2022-01-07] MEDS: Aspirin Chewable 81 MG TAB PO SCH (09:37)
[2022-01-07] MEDS: Famotidine 20 MG TAB PO SCH ×2 (09:37→20:58)
[2022-01-07] MEDS: Polyethylene Glycol 3350 17 GM Packet PO SCH (09:37)
[2022-01-07 09:56] LABS: ALT (SGPT) 125 U/L (8-55); AST (SGOT) 92 U/L (5-34); Albumin 3.7 g/dL (3.5-5.0); Alkaline Phosphatase 82 U/L (40-110); Anion Gap 15 mmol/L (10-20); BUN (Urea Nitrogen) 16 mg/dL (8.4-25.7); Bilirubin, Total 0.8 mg/dL (0.2-1.2); Calc. Creatinine Clearance 103 mL/min (70-130); Calcium 9.2 mg/dL (7.8-10.44); Carbon Dioxide 23 mmol/L (22-29); Chloride 103 mmol/L (98-107); Estimated GFR 99; Globulin 3.4 g/dL (2.4-3.5); Glucose 158 mg/dL (70-105); Potassium 4.1 mmol/L (3.5-5.1); Protein, Total 7.1 g/dL (6.0-8.3); Sodium 137 mmol/L (136-145)
[2022-01-07 11:03] LABS: Bacteria/HPF None Seen HPF (None Seen); Bilirubin Negative (Negative); Blood, Urine Negative (Negative); Clarity Clear (Clear); Glucose, Urine (Dipstick) Normal (Negative); Ketone, Urine Negative (Negative); Leukocyte Negative Leu/uL (Negative); Nitrite Negative (Negative); Protein, Urine (Dipstick) Negative (Neg-Trace); RBC/HPF 0-3 HPF (0-3); Squamous Epithelial None Seen HPF (0-3); Urobilinogen Normal mg/dL (Less than 2); WBC/HPF 0-3 HPF (0-3); pH, Urine 5.5 (5.0-9.0)
[2022-01-07 11:06] LABS: Urine Culture Reflex No No
[2022-01-07] MEDS ORDERED: VANCOMYCIN 2 GRAM/500 ML BAG 2 GM in Premix Bag 1 BAG IVPB SCH (18:00)
[2022-01-07] MEDS: Cefepime 2 GM in Sodium Chloride 0.9% 100 ML IVPB SCH (18:45)
[2022-01-07] MEDS: Atorvastatin Calcium 20 MG TAB PO SCH (20:58)
[2022-01-07] MEDS ORDERED: Vancomycin 1 GM in Premix Bag 1 BAG IVPB SCH (21:00)
[2022-01-08 04:58] LABS: #Eosinphils 0.4 thou/uL (0.0-0.7); #Lymphocytes 1.9 thou/uL (1.20-3.40); #Monocytes 1.2 thou/uL (0.11-0.59); #Neutrophils 6.7 thou/uL (1.40-6.50); %Basophils 0.3 % (0.0-1.0); %Lymphocytes 18.6 % (21.0-51.0); %Monocytes 11.6 % (0.0-10.0); %Neutrophils 65.4 % (42.0-75.0); Mean Corpuscular HGB CONC 32.6 g/dL (32.0-36.0); Mean Corpuscular Hemoglobin 30.4 pg (27.0-31.0); Mean Corpuscular Volume 93.3 fl (78.0-98.0); Mean Platelet Volume 6.6 fL (7.4-10.4); Platelet Count 580 thou/uL (130-400); White Blood Cell (WBC) Count 10.3 thou/uL (4.8-10.8)
[2022-01-08 05:05] LABS: ALT (SGPT) 112 U/L (8-55); AST (SGOT) 64 U/L (5-34); Albumin 3.4 g/dL (3.5-5.0); Alkaline Phosphatase 78 U/L (40-110); Anion Gap 12 mmol/L (10-20); BUN (Urea Nitrogen) 16 mg/dL (8.4-25.7); Bilirubin, Total 0.9 mg/dL (0.2-1.2); Calc. Creatinine Clearance 104 mL/min (70-130); Calcium 8.8 mg/dL (7.8-10.44); Carbon Dioxide 24 mmol/L (22-29); Chloride 105 mmol/L (98-107); Estimated GFR 101; Glucose 120 mg/dL (70-105); Potassium 4.3 mmol/L (3.5-5.1); Protein, Total 6.4 g/dL (6.0-8.3); Sodium 137 mmol/L (136-145)
[2022-01-08] MEDS: Cefepime 2 GM in Sodium Chloride 0.9% 100 ML IVPB SCH ×2 (05:49→17:36)
[2022-01-08] MEDS: Benzonatate 100 MG CAP PO PRN ×2 (06:33→20:18)
[2022-01-08] MEDS: HYDROcodone/Acetaminophen 5/325 mg Tablet PO PRN ×3 (06:33→22:33)
[2022-01-08] MEDS: Aspirin Chewable 81 MG TAB PO SCH (08:59)
[2022-01-08] MEDS: Polyethylene Glycol 3350 17 GM Packet PO SCH (08:59)
[2022-01-08] MEDS: VANCOMYCIN 1.25 GM/250 ML BAG 1.25 GM in Premix Bag 1 BAG IVPB SCH ×2 (09:00→20:22)
[2022-01-08] MEDS: Metoprolol Tartrate 50 MG TAB PO SCH ×2 (09:00→20:18)
[2022-01-08] MEDS: Lisinopril 5 MG TAB PO SCH (09:00)
[2022-01-08] MEDS: Famotidine 20 MG TAB PO SCH ×2 (09:00→20:18)
[2022-01-08] MEDS: Acetaminophen 325 MG TAB PO PRN (20:17)
[2022-01-08] MEDS: Atorvastatin Calcium 20 MG TAB PO SCH (20:17)
[2022-01-08] MEDS: Insulin Regular 300 UNITS/3 ML VIAL SC PRN (20:18)
[2022-01-09 04:59] LABS: #Eosinphils 0.3 thou/uL (0.0-0.7); #Monocytes 1.1 thou/uL (0.11-0.59); #Neutrophils 6.6 thou/uL (1.40-6.50); %Basophils 0.4 % (0.0-1.0); %Eosinophils 2.7 % (0.0-10.0); %Lymphocytes 19.9 % (21.0-51.0); %Monocytes 11.2 % (0.0-10.0); %Neutrophils 65.7 % (42.0-75.0); Hemoglobin 10.4 g/dL (14.0-18.0); Mean Corpuscular HGB CONC 32.1 g/dL (32.0-36.0); Mean Corpuscular Hemoglobin 29.5 pg (27.0-31.0); Mean Corpuscular Volume 91.9 fl (78.0-98.0); Mean Platelet Volume 6.8 fL (7.4-10.4); Platelet Count 593 thou/uL (130-400); Red Blood Cell (RBC) Count 3.54 mill/uL (4.70-6.10); White Blood Cell (WBC) Count 10.1 thou/uL (4.8-10.8)
[2022-01-09 05:11] LABS: ALT (SGPT) 108 U/L (8-55); AST (SGOT) 62 U/L (5-34); Albumin 3.4 g/dL (3.5-5.0); Alkaline Phosphatase 79 U/L (40-110); Anion Gap 13 mmol/L (10-20); BUN (Urea Nitrogen) 16 mg/dL (8.4-25.7); Bilirubin, Total 0.8 mg/dL (0.2-1.2); Calc. Creatinine Clearance 105 mL/min (70-130); Calcium 8.5 mg/dL (7.8-10.44); Carbon Dioxide 24 mmol/L (22-29); Chloride 103 mmol/L (98-107); Estimated GFR 103; Globulin 3.1 g/dL (2.4-3.5); Glucose 120 mg/dL (70-105); Magnesium 2.2 mg/dL (1.6-2.6); Phosphorus 3.8 mg/dL (2.3-4.7); Potassium 4.3 mmol/L (3.5-5.1); Protein, Total 6.5 g/dL (6.0-8.3); Sodium 136 mmol/L (136-145)
[2022-01-09] MEDS: Cefepime 2 GM in Sodium Chloride 0.9% 100 ML IVPB SCH ×2 (05:24→17:52)
[2022-01-09] MEDS: Insulin Regular 300 UNITS/3 ML VIAL SC PRN ×3 (05:39→20:50)
[2022-01-09 07:49] LABS: Vancomycin, Trough 9.7 ug/mL
[2022-01-09] MEDS: HYDROcodone/Acetaminophen 5/325 mg Tablet PO PRN ×2 (08:17→13:36)
[2022-01-09] MEDS: VANCOMYCIN 1.25 GM/250 ML BAG 1.25 GM in Premix Bag 1 BAG IVPB SCH (08:33)
[2022-01-09] MEDS: Metoprolol Tartrate 50 MG TAB PO SCH ×2 (09:25→20:50)
[2022-01-09] MEDS: Famotidine 20 MG TAB PO SCH ×2 (09:26→20:50)
[2022-01-09] MEDS: Lisinopril 5 MG TAB PO SCH (09:26)
[2022-01-09] MEDS: Polyethylene Glycol 3350 17 GM Packet PO SCH (09:26)
[2022-01-09] MEDS: Aspirin Chewable 81 MG TAB PO SCH (09:26)
[2022-01-09] MEDS: VANCOMYCIN 1.75 GM/500 ML BAG 1.75 GM in Premix Bag 1 BAG IVPB SCH ×2 (09:27→20:50)
[2022-01-09] MEDS: Atorvastatin Calcium 20 MG TAB PO SCH (20:50)
[2022-01-09] MEDS: Benzonatate 100 MG CAP PO PRN (20:50)
[2022-01-10] MEDS: HYDROcodone/Acetaminophen 5/325 mg Tablet PO PRN ×5 (00:09→21:07)
[2022-01-10 04:49] LABS: #Basophils 0.1 thou/uL (0.0-0.2); #Eosinphils 0.3 thou/uL (0.0-0.7); #Lymphocytes 2.1 thou/uL (1.20-3.40); %Basophils 0.6 % (0.0-1.0); %Eosinophils 2.4 % (0.0-10.0); %Lymphocytes 18.2 % (21.0-51.0); %Monocytes 8.5 % (0.0-10.0); %Neutrophils 70.3 % (42.0-75.0); Hemoglobin 10.7 g/dL (14.0-18.0); Mean Corpuscular HGB CONC 33.8 g/dL (32.0-36.0); Mean Corpuscular Hemoglobin 31.3 pg (27.0-31.0); Mean Corpuscular Volume 92.5 fl (78.0-98.0); Mean Platelet Volume 6.7 fL (7.4-10.4); Platelet Count 608 thou/uL (130-400); Red Blood Cell (RBC) Count 3.42 mill/uL (4.70-6.10); White Blood Cell (WBC) Count 11.4 thou/uL (4.8-10.8)
[2022-01-10 05:10] LABS: Phosphorus 3.4 mg/dL (2.3-4.7)
[2022-01-10 05:16] LABS: ALT (SGPT) 103 U/L (8-55); AST (SGOT) 53 U/L (5-34); Albumin 3.4 g/dL (3.5-5.0); Alkaline Phosphatase 79 U/L (40-110); Anion Gap 12 mmol/L (10-20); BUN (Urea Nitrogen) 12 mg/dL (8.4-25.7); Bilirubin, Total 0.6 mg/dL (0.2-1.2); Calc. Creatinine Clearance 112 mL/min (70-130); Calcium 9.1 mg/dL (7.8-10.44); Carbon Dioxide 23 mmol/L (22-29); Chloride 105 mmol/L (98-107); Estimated GFR 105; Glucose 147 mg/dL (70-105); Magnesium 2.2 mg/dL (1.6-2.6); Potassium 4.3 mmol/L (3.5-5.1); Protein, Total 6.4 g/dL (6.0-8.3); Sodium 136 mmol/L (136-145)
[2022-01-10] MEDS: Cefepime 2 GM in Sodium Chloride 0.9% 100 ML IVPB SCH ×2 (05:53→16:13)
[2022-01-10] MEDS: Insulin Regular 300 UNITS/3 ML VIAL SC PRN ×2 (06:01→21:07)
[2022-01-10] MEDS: Metoprolol Tartrate 50 MG TAB PO SCH ×2 (10:00→21:07)
[2022-01-10] MEDS: Lisinopril 5 MG TAB PO SCH (10:00)
[2022-01-10] MEDS: Famotidine 20 MG TAB PO SCH ×2 (10:00→21:07)
[2022-01-10] MEDS: Aspirin Chewable 81 MG TAB PO SCH (10:00)
[2022-01-10] MEDS: Polyethylene Glycol 3350 17 GM Packet PO SCH (10:00)
[2022-01-10] MEDS: Benzonatate 100 MG CAP PO PRN ×2 (10:01→15:29)
[2022-01-10] MEDS: VANCOMYCIN 1.75 GM/500 ML BAG 1.75 GM in Premix Bag 1 BAG IVPB SCH ×2 (10:01→21:07)
[2022-01-10] MEDS: Guaifenesin DM 100-10/5 ML UDCUP PO PRN ×2 (10:02→15:29)
[2022-01-10 20:24] LABS: Vancomycin, Trough 15.1 ug/mL
[2022-01-10] MEDS: Atorvastatin Calcium 20 MG TAB PO SCH (21:07)
[2022-01-11] MEDS: Benzonatate 100 MG CAP PO PRN ×4 (01:44→21:43)
[2022-01-11] MEDS: Acetaminophen 325 MG TAB PO PRN ×2 (01:47→11:24)
[2022-01-11 05:22] LABS: Anion Gap 11 mmol/L (10-20); BUN (Urea Nitrogen) 12 mg/dL (8.4-25.7); Calc. Creatinine Clearance 111 mL/min (70-130); Carbon Dioxide 27 mmol/L (22-29); Chloride 102 mmol/L (98-107); Estimated GFR 105; Glucose 114 mg/dL (70-105); Potassium 4.4 mmol/L (3.5-5.1); Sodium 136 mmol/L (136-145)
[2022-01-11 05:23] LABS: #Basophils 0.1 thou/uL (0.0-0.2); #Eosinphils 0.4 thou/uL (0.0-0.7); #Lymphocytes 2.2 thou/uL (1.20-3.40); #Neutrophils 7.7 thou/uL (1.40-6.50); %Basophils 0.6 % (0.0-1.0); %Eosinophils 3.5 % (0.0-10.0); %Lymphocytes 19.5 % (21.0-51.0); %Monocytes 9.1 % (0.0-10.0); %Neutrophils 67.4 % (42.0-75.0); Hemoglobin 10.7 g/dL (14.0-18.0); Mean Corpuscular HGB CONC 34.5 g/dL (32.0-36.0); Mean Corpuscular Hemoglobin 31.8 pg (27.0-31.0); Mean Platelet Volume 6.7 fL (7.4-10.4); Platelet Count 631 thou/uL (130-400); RBC Distribution Width 12.1 % (11.5-14.5); Red Blood Cell (RBC) Count 3.36 mill/uL (4.70-6.10); White Blood Cell (WBC) Count 11.4 thou/uL (4.8-10.8)
[2022-01-11] MEDS: Cefepime 2 GM in Sodium Chloride 0.9% 100 ML IVPB SCH ×2 (05:34→17:44)
[2022-01-11] MEDS: Famotidine 20 MG TAB PO SCH ×2 (09:09→21:43)
[2022-01-11] MEDS: Aspirin Chewable 81 MG TAB PO SCH (09:09)
[2022-01-11] MEDS: Lisinopril 5 MG TAB PO SCH (09:10)
[2022-01-11] MEDS: Metoprolol Tartrate 50 MG TAB PO SCH ×2 (09:10→21:43)
[2022-01-11] MEDS: Polyethylene Glycol 3350 17 GM Packet PO SCH (09:10)
[2022-01-11] MEDS: VANCOMYCIN 1.75 GM/500 ML BAG 1.75 GM in Premix Bag 1 BAG IVPB SCH ×2 (09:10→21:45)
[2022-01-11] MEDS: Guaifenesin DM 100-10/5 ML UDCUP PO PRN ×3 (09:19→21:44)
[2022-01-11] MEDS: HYDROcodone/Acetaminophen 5/325 mg Tablet PO PRN ×2 (14:56→21:43)
[2022-01-11] MEDS: Atorvastatin Calcium 20 MG TAB PO SCH (21:43)
[2022-01-12] MEDS: Benzonatate 100 MG CAP PO PRN ×2 (01:59→20:13)
[2022-01-12] MEDS: HYDROcodone/Acetaminophen 5/325 mg Tablet PO PRN ×4 (03:53→20:13)
[2022-01-12] MEDS: Guaifenesin DM 100-10/5 ML UDCUP PO PRN (03:54)
[2022-01-12 04:53] LABS: #Eosinphils 0.3 thou/uL (0.0-0.7); #Lymphocytes 2.1 thou/uL (1.20-3.40); #Monocytes 0.9 thou/uL (0.11-0.59); #Neutrophils 8.2 thou/uL (1.40-6.50); %Basophils 0.4 % (0.0-1.0); %Lymphocytes 18.2 % (21.0-51.0); %Neutrophils 70.5 % (42.0-75.0); Hemoglobin 10.3 g/dL (14.0-18.0); Mean Corpuscular HGB CONC 32.6 g/dL (32.0-36.0); Mean Corpuscular Hemoglobin 29.6 pg (27.0-31.0); Mean Corpuscular Volume 90.9 fl (78.0-98.0); Mean Platelet Volume 6.6 fL (7.4-10.4); Platelet Count 645 thou/uL (130-400); RBC Distribution Width 12.1 % (11.5-14.5); Red Blood Cell (RBC) Count 3.47 mill/uL (4.70-6.10); White Blood Cell (WBC) Count 11.6 thou/uL (4.8-10.8)
[2022-01-12 05:12] LABS: ALT (SGPT) 76 U/L (8-55); AST (SGOT) 36 U/L (5-34); Albumin 3.5 g/dL (3.5-5.0); Alkaline Phosphatase 80 U/L (40-110); Anion Gap 13 mmol/L (10-20); BUN (Urea Nitrogen) 10 mg/dL (8.4-25.7); Bilirubin, Total 0.8 mg/dL (0.2-1.2); Calc. Creatinine Clearance 117 mL/min (70-130); Calcium 9.1 mg/dL (7.8-10.44); Carbon Dioxide 24 mmol/L (22-29); Chloride 102 mmol/L (98-107); Estimated GFR 107; Globulin 3.2 g/dL (2.4-3.5); Glucose 139 mg/dL (70-105); Potassium 3.9 mmol/L (3.5-5.1); Protein, Total 6.7 g/dL (6.0-8.3); Sodium 135 mmol/L (136-145)
[2022-01-12] MEDS: Cefepime 2 GM in Sodium Chloride 0.9% 100 ML IVPB SCH ×2 (05:56→17:15)
[2022-01-12 08:22] LABS: Vancomycin, Trough 15.1 ug/mL
[2022-01-12] MEDS: Aspirin Chewable 81 MG TAB PO SCH (09:14)
[2022-01-12] MEDS: Lisinopril 5 MG TAB PO SCH (09:14)
[2022-01-12] MEDS: Polyethylene Glycol 3350 17 GM Packet PO SCH (09:14)
[2022-01-12] MEDS: Metoprolol Tartrate 50 MG TAB PO SCH ×2 (09:14→20:13)
[2022-01-12] MEDS: Famotidine 20 MG TAB PO SCH ×2 (09:14→20:12)
[2022-01-12] MEDS: VANCOMYCIN 1.75 GM/500 ML BAG 1.75 GM in Premix Bag 1 BAG IVPB SCH ×2 (09:59→21:52)
[2022-01-12] MEDS: Insulin Regular 300 UNITS/3 ML VIAL SC PRN ×2 (11:19→17:15)
[2022-01-12 15:52] VITALS: BMI 25.0
[2022-01-12] MEDS: Atorvastatin Calcium 20 MG TAB PO SCH (20:12)
[2022-01-13 04:46] LABS: #Basophils 0.1 thou/uL (0.0-0.2); #Eosinphils 0.3 thou/uL (0.0-0.7); #Lymphocytes 1.7 thou/uL (1.20-3.40); #Monocytes 0.8 thou/uL (0.11-0.59); #Neutrophils 7.3 thou/uL (1.40-6.50); %Basophils 0.8 % (0.0-1.0); %Eosinophils 2.8 % (0.0-10.0); %Lymphocytes 17.2 % (21.0-51.0); %Monocytes 7.6 % (0.0-10.0); %Neutrophils 71.6 % (42.0-75.0); Hemoglobin 11.1 g/dL (14.0-18.0); Mean Corpuscular HGB CONC 34.2 g/dL (32.0-36.0); Mean Corpuscular Hemoglobin 31.4 pg (27.0-31.0); Mean Corpuscular Volume 91.7 fl (78.0-98.0); Mean Platelet Volume 6.4 fL (7.4-10.4); Platelet Count 667 thou/uL (130-400); RBC Distribution Width 12.1 % (11.5-14.5); Red Blood Cell (RBC) Count 3.53 mill/uL (4.70-6.10); White Blood Cell (WBC) Count 10.1 thou/uL (4.8-10.8)
[2022-01-13 05:18] LABS: ALT (SGPT) 76 U/L (8-55); AST (SGOT) 38 U/L (5-34); Albumin 3.6 g/dL (3.5-5.0); Alkaline Phosphatase 86 U/L (40-110); Anion Gap 12 mmol/L (10-20); BUN (Urea Nitrogen) 13 mg/dL (8.4-25.7); Bilirubin, Total 0.8 mg/dL (0.2-1.2); Calc. Creatinine Clearance 108 mL/min (70-130); Calcium 9.3 mg/dL (7.8-10.44); Carbon Dioxide 26 mmol/L (22-29); Chloride 103 mmol/L (98-107); Estimated GFR 104; Globulin 3.1 g/dL (2.4-3.5); Glucose 120 mg/dL (70-105); Protein, Total 6.7 g/dL (6.0-8.3); Sodium 137 mmol/L (136-145)
[2022-01-13] MEDS: Insulin Regular 300 UNITS/3 ML VIAL SC PRN (06:22)
[2022-01-13] MEDS: Cefepime 2 GM in Sodium Chloride 0.9% 100 ML IVPB SCH ×2 (06:22→17:04)
[2022-01-13] MEDS: HYDROcodone/Acetaminophen 5/325 mg Tablet PO PRN (06:32)
[2022-01-13] MEDS: Polyethylene Glycol 3350 17 GM Packet PO SCH (08:41)
[2022-01-13] MEDS: Aspirin Chewable 81 MG TAB PO SCH (08:41)
[2022-01-13] MEDS: Lisinopril 5 MG TAB PO SCH (08:42)
[2022-01-13] MEDS: Metoprolol Tartrate 50 MG TAB PO SCH (08:42)
[2022-01-13] MEDS: Famotidine 20 MG TAB PO SCH (08:42)
[2022-01-13] MEDS: VANCOMYCIN 1.75 GM/500 ML BAG 1.75 GM in Premix Bag 1 BAG IVPB SCH (12:01)
[2022-01-13 14:06] VITALS: BP 103/61; TEMP 97.8
== END 2022-01-13 18:21 | disposition home or self-care (01) | DRG 233 ==
LOC: ERS 13:20 → CCU 16:20 → 2NO 01-02 18:38
PROVIDERS: ADMIT Hospitalist; ATTEND Internal Medicine
PROC: 5A1945Z Respiratory Ventilation, 24-96 Consecutive Hours (ICD-10-PCS; 2021-12-29)
PROC: 0BH18EZ Insertion of Endotracheal Airway into Trachea, Via Natural or Artificial Opening Endoscopic (ICD-10-PCS; 2021-12-29)
PROC: 06HY33Z Insertion of Infusion Device into Lower Vein, Percutaneous Approach (ICD-10-PCS; 2021-12-29)
PROC: 0D9670Z Drainage of Stomach with Drainage Device, Via Natural or Artificial Opening (ICD-10-PCS; 2021-12-29)
PROC: 5A12012 Performance of Cardiac Output, Single, Manual (ICD-10-PCS; 2021-12-29)
PROC: 4A023N7 Measurement of Cardiac Sampling and Pressure, Left Heart, Percutaneous Approach (ICD-10-PCS; 2021-12-30)
PROC: B2111ZZ Fluoroscopy of Multiple Coronary Arteries using Low Osmolar Contrast (ICD-10-PCS; 2021-12-30)
PROC: B2151ZZ Fluoroscopy of Left Heart using Low Osmolar Contrast (ICD-10-PCS; 2021-12-30)
PROC: 02100Z9 Bypass Coronary Artery, One Artery from Left Internal Mammary, Open Approach (ICD-10-PCS; principal; 2021-12-31)
PROC: 021209W Bypass Coronary Artery, Three Arteries from Aorta with Autologous Venous Tissue, Open Approach (ICD-10-PCS; 2021-12-31)
PROC: 06BP3ZZ Excision of Right Saphenous Vein, Percutaneous Approach (ICD-10-PCS; 2021-12-31)
PROC: 5A1221Z Performance of Cardiac Output, Continuous (ICD-10-PCS; 2021-12-31)
PROC: 02L70CK Occlusion of Left Atrial Appendage with Extraluminal Device, Open Approach (ICD-10-PCS; 2021-12-31)
DX: I21.4 Non-ST elevation (NSTEMI) myocardial infarction (principal); I46.9 Cardiac arrest, cause unspecified; I49.01 Ventricular fibrillation; J96.01 Acute respiratory failure with hypoxia; J18.9 Pneumonia, unspecified organism; I50.21 Acute systolic (congestive) heart failure; I47.21 Torsades de pointes; I25.10 Atherosclerotic heart disease of native coronary artery without angina pectoris; E78.5 Hyperlipidemia, unspecified; E78.00 Pure hypercholesterolemia, unspecified; E87.6 Hypokalemia; E11.65 Type 2 diabetes mellitus with hyperglycemia; I95.81 Postprocedural hypotension; Z20.822 Contact with and (suspected) exposure to COVID-19
CPT/HCPCS: 31500; 36415; 36416; 36430; 36556; 36600; 51702; 70450; 71045; 76705; 80048; 80053; 80061; 80202; 80306; 81001; 82553; 82805; 83036; 83735; 84100; 84145; 84484; 85014; 85018; 85025; 85049; 85347; 85610; 85730; 86850; 86900; 86901; 87040; 87070; 87071; 87205; 87811; 93005; 93010; 93306; 93458; 93798; 93970; 94002; 94003; 94150; 96374; 96375; 97139; 99152; 99153; C1751; C1769; J0282; J0690; J0692; J0696; J1644; J1815; J1885; J2001; J2150; J2250; J2270; J2405; J2440; J2704; J2720; J3010; J3246; J3370; J3475; J3480; J3490; J7050; J7070; J7120; P9047; Q9967; S0017; S0028; U0002; U0003; U0005

== ENCOUNTER 2022-01-26 11:45 | Outpatient (CLI) | payer OTHER | END 2022-01-26 11:46 | disposition home or self-care (01) | LOC: BICRAD 11:45 | PROVIDERS: ATTEND Family Medicine | DX: R05.9 Cough, unspecified (principal) | CPT/HCPCS: 71046 ==